=== PATIENT | male | born 1985 | race Caucasian/White ===

== ENCOUNTER 2016-10-20 09:25 | Emergency (ER) | payer BC ==
[2016-10-20] MEDS ORDERED: Sodium Chloride 0.9% 1,000 ML PRIMARY IV ONE (09:41)
[2016-10-20] MEDS ORDERED: ASPIRIN 81 MG (BABY) CHEWABLE TABLET PO ONE (09:41)
[2016-10-20] MEDS ORDERED: NORMAL SALINE 10 ML SYRINGE FLUSH IVP PRN (09:41)
[2016-10-20 09:43] VITALS: RESP 15; TEMP 97.6
[2016-10-20 09:49] LABS: RDW COEFFICIENT OF VARIATION 13.8 % (11.5-14.5)
[2016-10-20 10:01] LABS: ASPARTATE AMINO TRANSFERASE 30 IU/L (21-57); BLOOD UREA NITROGEN 12 mg/dL (7-22); CALCIUM 10.2 mg/dL (8.7-10.7); CHLORIDE 108 meq/L (98-112); CREATININE 0.6 mg/dL (0.70-1.50); EST GLOMERULAR FILTRATION > 60 (>60 ml/min/1.73m(2)); GLUCOSE 99 mg/dL (78-110); POTASSIUM 4.8 meq/L (3.8-5.2); SODIUM 141 meq/L (135-145); TOTAL PROTEIN 7.6 g/dL (6.1-8.0)
[2016-10-20 10:07] LABS: HEMATOCRIT 50.4 % (42.0-52.0); HEMOGLOBIN 17.7 g/dL (14.0-18.0); MEAN CORPUSCULAR HEMOGLOBIN 30.7 PG (27-31); MEAN CORPUSCULAR HGB CONC 35.1 g/dL (33-37); RED BLOOD COUNT 5.76 10^6/uL (4.70-6.10); WHITE BLOOD COUNT 8.24 10^3/uL (4.8-10.8)
[2016-10-20 10:08] LABS: BASOPHILS # (AUTO) 0.22 10*3/UL; BASOPHILS % (AUTO) 2.7 % (0-1); EOSINOPHILS % (AUTO) 3.8 % (0-8); IMM GRAN % (AUTO) 0.2 % (0-5); IMM GRAN# (AUTO) 0.02 10*3/UL; LYMPHOCYTES % (AUTO) 44.9 % (10-50); MONOCYTES # (AUTO) 0.58 10*3/UL (0.3-0.8); NEUTROPHILS # (AUTO) 3.41 10*3/UL; NEUTROPHILS % (AUTO) 41.4 % (50-80); PLATELET MORPHOLOGY COMMENT NORMAL MORPHOLOGY (NORM)
[2016-10-20 10:23] LABS: CREATINE KINASE MB 1.12 NG/DL (0.00-5.00)
[2016-10-20 10:25] LABS: TROPONIN I < 0.012 ng/mL (< 0.040)
--- NOTE | 2016-10-20 14:35 | DI ---
AP CHEST X-RAY, 10/20/2016 9:41 AM : Clinical History: Chest pain. Previous Exam: None at this facility. On this view, the patient took a very shallow inspiration. There is no acute soft tissue or bony abno rmality. Heart size is normal. Lungs are clear. Mediastinal structures are normal. There are no pulmo nary nodules. Reading: Normal chest x-ray for the shallow inspiratory effort.
--- NOTE | 2016-10-20 17:23 | EKG ---
[address] [address] Measurements Intervals [place] Rate: 94 P: 40 FL: 128 QRS: 76 QRSD: 118 T: 44 QT: 361 QTc: 413 Interpretive Statements SINUS RHYTHM MODERATE INTRAVENTRICULAR CONDUCTION DELAY NONSPECIFIC ST ELEVATION No previous ECG available for comparison Electronically Signed On 10-20-16 19:31:59 MST by Phillip Fuchs [email or web address]
--- NOTE | 2016-10-21 04:12 | PDOC ---
Chest Pain HPI - General Chief Complaint: Chest Pain Stated Complaint: chest pain Date Seen by Provider: 10/20/16 Time Seen by Provider: 09:30 Source: Patient Exam Limitations: POSITIVE: No limitations Treatment Prior to Arrival: REPORTS: None Nurse's Notes Reviewed & Considered: Yes - History of Present Illness Initial Comments: The patient is a 14-year-old male. He states that yesterday around 4 PM he was lifting some tubing and he developed some left anterior chest discomfort which lasted about 5 minutes. 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 He smokes a half a pack of cigarettes per day. No family history of cardiopulmonary problems. Is on no medications and has no known cardiopulmonary problems. No cough or pleuritic chest pain. Body Location Affected: REPORTS: Chest Timing: REPORTS: Abrupt Duration: 1 hour Severity: Moderate Persistent/Worse since (date): 10/20/16 Persistent/Worse since (time): 08:00 Context: REPORTS: Activity (Sitting in his truck at work) Quality: REPORTS: "Pain", Other (" Tension") Radiation: REPORTS: Shoulder (L) Associated Symptoms: DENIES: Nausea, Vomiting, Diaphoresis, Shortness of Breath , Hurts to Breathe, Palpitations, Productive Cough (blood), Productive Cough ( sputum), Weakness, Dizziness Modifying Factors: improves with: None Reported Similar Symptoms Previously: Yes (yesterday for 5 minutes as above) Recently seen/treated/hospitalized: No Any Prior Injuries Related to Current Complaint?: No - Patient Home Medications Home Medications: Home Medications NK [No Home Medications Reported] 10/20/16 - Patient Allergies Allergies/Adverse Reactions: Allergies Allergy/AdvReac Type Severity Reaction Status Date / Time No Known Allergies Allergy Verified 10/20/16 09:29 Past Medical History - heen HEENT History: Other (please comment) Additional HEENT History: WEARS GLASSES Cardiovascular History: Denies History Respiratory History: Denies History Gastrointestinal History: Denies History Genitourinary History: Denies History Endocrine History: Denies History Musculoskeletal History: Denies History Prosthesis or Implant: No Neurological History: Denies History Blood Disorders: Denies History Psychiatric History: Denies History History of Sexually Transmitted Diseases: No Male Reproductive History: Denies History Cancer History: Denies History In Past Year Been Physically Harmed or Verbally Threatened: No (PER PATIENT) History of MDRO: No History of Other Communicable Diseases: No Tobacco Use: Current Every Day Smoker Alcohol Use: None Substance Use Type: None Previous Surgical History: No Significant Family History: No pertinent family hx Past Medical History Reviewed: Reviewed - No Changes ROS - Limitations ROS Limitations: No Limitations Constitution: REPORTS: Denies Symptoms Cardiovascular: REPORTS: Chest Pain Respiratory: REPORTS: Denies Resp Symptoms Neurological: REPORTS: Denies Neuro Symptoms Gastrointestinal: REPORTS: Denies GI Symptoms Endocrine: REPORTS: Denies Symptoms Musculoskeletal: REPORTS: Denies MS Symptoms Genitourinary: REPORTS: Denies Symptoms Eyes: REPORTS: Denies Symptoms ENT: REPORTS: Denies Symptoms Skin: REPORTS: Denies Skin Symptoms Lympathic: REPORTS: Denies Lympathic Symptoms Immunologic: POSITIVE: Denies Symptoms Psychiatric: POSITIVE: Denies Psych Symptoms Chest Pain PE - General Appearance General Appearance: REPORTS: Alert, Cooperative, No Acute Distress, No Evidence of Trauma - HEENT HEENT: POSITIVE: Head Inspection Nml, Eyes Inspection Nml, Ears Inspection Nml, Nose Inspection Nml, Oral/Dental Inspect. Nml, Pharynx Inspect. Nml, PERRL, EOMI - Neck Neck: REPORTS: Normal Inspection, No Carotid Bruit - Respiratory Respiratory: REPORTS: No Respiratory Distress, Breath Sounds Normal, Chest Non- Tender - Cardiovascular Cardiovascular: REPORTS: Regular Rate and Rhythm, Heart Sounds Normal, Equal Pulses, Strong Pulses, No Murmur, No Gallop, No Friction Rub, No JVD. DENIES: Irregularly Irreg Rhythm, Tachycardia, Bradycardia, Occasional Extrasystoles, Frequent Extrasystoles, JVD Present, S3 Gallop, S4 Gallop, Murmur, Friction Rub , Mushtaq's Crunch, Bilat BPs Asymmetrical, Other Peripheral Pulses: Radial (R): 2+, Radial (L): 2+ - Abdomen Abdomen: Soft: (All Quadrants), Normal Bowel Sounds: (All Quadrants), Denies Tenderness: (All Quadrants), No Splenomegaly: (All Quadrants), No Hepatomegaly: (All Quadrants), No Guarding: (All Quadrants), No Rebound: (All Quadrants), No Palpable Pulse: (All Quadrants), No Palpabale Mass: (All Quadrants), No Distention: (All Quadrants), No Rigidity: (All Quadrants) - Skin Skin: REPORTS: Intact, Normal For Race, Warm, Dry, No Rash - Extremities Extremity: Non-Tender: (All Extremities), Normal ROM: (All Extremities), Normal Inspection: (All Extremities) - Neurological / Psychological Neurological: POSITIVE: Oriented X3, 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, Motor Normal, Sensation Normal, 5, 6 Images - Complete Complete: 1 - Area of discomfort Chest Pain Progress - Results Reviewed by me Xrays/CTs/US Reviewed by me: Yes Discussed with Radiologist: No Radiology Findings: Normal Lab Results Reviewed: Yes Lab Results:: Laboratory Results 10/20/16 Range/Units 09:46 WBC 8.24 (4.8-10.8) 10^3/uL RBC 5.76 (4.70-6.10) 10^6/uL Hgb 17.7 (14.0-18.0) g/dL Hct 50.4 (42.0-52.0) % MCV 87.5 (80-90) FL MCH 30.7 (27-31) PG MCHC 35.1 (33-37) g/dL RDW Std Deviation 43.5 (39-50) fL RDW Coeff of Huong 13.8 (11.5-14.5) % Plt Count 156 (140-350) 10*3/uL Immature Gran % (Auto) 0.2 (0-5) % Neut % (Auto) 41.4 L (50-80) % Lymph % (Auto) 44.9 (10-50) % [place] % (Auto) 7.0 (5-15) % Eos % (Auto) 3.8 (0-8) % Baso % (Auto) 2.7 H (0-1) % Immature Gran # (Auto) 0.02 10*3/UL Neut # (Auto) 3.41 10*3/UL Lymph # (Auto) 3.70 10*3/uL [place] # (Auto) 0.58 (0.3-0.8) 10*3/UL Eos # (Auto) 0.31 10*3/UL Baso # (Auto) 0.22 10*3/UL WBC Morphology Comment Normal morphology (NORM) Plt Morphology Comment Normal morphology (NORM) RBC Morph Comment Normal morphology (NORM) D-Dimer < 0.19 (0.00-0.59) mg/L Sodium 141 (135-145) meq/L Potassium 4.8 (3.8-5.2) meq/L Chloride 108 (98-112) meq/L Carbon Dioxide 21 L (23-33) meq/L Anion Gap 12 (5-20) BUN 12 (7-22) mg/dL Creatinine 0.6 L (0.70-1.50) mg/dL Estimated GFR > 60 (>60 ml/min/1.73m(2)) BUN/Creatinine Ratio 20.00 (6-20) Glucose 99 (78-110) mg/dL Calculated Osmolality 291.0 (267-292) mOsm/kg Calcium 10.2 (8.7-10.7) mg/dL Total Bilirubin 1.0 (0.3-1.2) mg/dL AST 30 (21-57) IU/L ALT 46 (21-72) IU/L Alkaline Phosphatase 52 (38-126) IU/L CK-MB (CK-2) 1.12 (0.00-5.00) NG/DL Troponin I < 0.012 (< 0.040) ng/mL Total Protein 7.6 (6.1-8.0) g/dL Albumin 4.4 (3.5-4.8) g/dL Globulin 3.2 (2.50-4.10) g/dL Albumin/Globulin Ratio 1.30 (1.3-2.0) mg/g EKG Interpreted/Reviewed By Me:: Yes EKG Interpretation:: POSITIVE: Normal Sinus Rhythm, Normal Rate, Normal Intervals, Normal [place], Normal QRS, Normal ST/T - Patient's Progress Pain Medication Addressed: POSITIVE: Yes (Recommended Aleve or Tylenol or Advil) School/Work Release Addressed: POSITIVE: Not Applicable Re-Examine Time: 10:55 Re-Examine Comment: Asymptomatic on discharge Status: POSITIVE: Improved, Re-Examined Quality Measure Initiative: CP/AMI: POSITIVE: EKG, ASA - Consult Counseled: POSITIVE: Patient, RE: Lab Results, RE: Radiology Results, RE: DX, RE : Need for F/U Patient Care Time - Estimated PCT Patient Care Time (In Minutes): 40 Vital Signs - VS Reviewed Vital Signs Reviewed: Yes Discharge Clinical Impression: Atypical chest pain Discharge Disposition: Discharged to Home Condition: Stable Patient Instructions Given at Discharge: Noncardiac Chest Pain (ED) Additional Instructions: I do not believe that your episodes of chest discomfort is due to heart or lung disease. I think most likely your chest symptoms are musculoskeletal, and I believe you're going to be fine. Warm moist compresses to your chest sometimes will relieve these episodes. Advil 2 or 3 every 8 hours may also be useful. Return anytime if your condition worsens in any way whatsoever. Follow-up with your primary care provider. Follow Up With: NONE,NONE [Primary Care Provider] - (Instructions as above. Follow-up with your primary care provider. Return here anytime if condition worsens in any way.)
== END 2016-10-20 11:39 | disposition home or self-care (01) ==
LOC: ER 09:25
DX: R07.89 Other chest pain (principal)
CPT/HCPCS: 71010; 80053; 82553; 84484; 85025; 85379; 93005; 93010; 99284; J7030